=== PATIENT | male | born 1965 | race Caucasian/White ===

== ENCOUNTER 2023-03-19 16:26 | Outpatient (CLI) | payer OTHER, SELFPAY | END 2023-03-19 16:27 | disposition home or self-care (01) | LOC: NFLDREF 03-21 10:24 | PROVIDERS: PCP Family Medicine; Referring Provider Family Medicine; Visit Provider Family Medicine | DX: Z00.00 Encounter for general adult medical examination without abnormal findings (principal); Z12.5 Encounter for screening for malignant neoplasm of prostate | CPT/HCPCS: 84153 ==

== ENCOUNTER 2023-05-03 15:41 | Outpatient (CLI) | payer OTHER, SELFPAY ==
--- OUTSIDE RECORDS SUMMARY | 2023-05-11 09:26 | XMS_ITS | Continuity of Care Document ---
Author Name Unknown Organization [facility] jodi Address [address] [facility] [place] [address] Phone Care Team Providers Care Aquatics Specialist Name Role Phone Will Leo FOLEY Unavailable Unavailabl e Allergies, Adverse Reactions, Alerts Substance Reaction Status Criticality No Known Allergies Active No Inform ation Medications Medication Instructions Dosage Effective Dates (start - stop) Status Comments celecoxib 200 mg capsule take 1-2 capsule by oral route every day - Active lisinopril 10 mg-hydrochlorothia zide 12.5 mg tablet take 1 tablet by oral route every day 1.00 tablet - Active omeprazole 20 mg capsule,delayed release take 1 capsule by oral route every day 30 minutes to 1 hour before a meal 20 MG - Active Cymbalta 30 mg capsule,delayed release take 1 capsule by oral route every day - Active Adderall XR 30 mg capsule,extended release take 1 capsule by oral route every day in the morning upon awakening 30 MG - Active Adderall 10 mg tablet take 1 tablet by oral route every day before breakfast 10 MG - Active hydrocodone 5 mg-acetaminophen 325 mg tablet take 0.5-1 tablet by oral route every 6 hours as needed for pain - No Longer Active Procedures Procedure Date OFFICE/OUTPATIENT VISIT, EST Foll-up eval q3mo opiod tx OFFICE/OUTPATIENT VISIT, EST OFFICE/OUTPATIENT VISIT, NEW Advance Directives Directive Yes / No Effective Date File Name No Information Encounters Encounter Description Practice Location Reason(s) For Visit Diagnoses Date Provider Providers Copied on Encounter [facility], [address] [facility] [place], [id number] , [place] [phone] [facility] [place] No Information 3 Jovanni Bailey. [address] [place], [place], [id number], [place]. tel:[phone] OFFICE/OUTPA TIENT VISIT, [facility], [address] [place] [address], [id number] , [place] [phone] [facility] Widespread pain (chief complaint) Chronic pain syndromeOther psoriatic arthropathyLong term (current) use of opiate analgesicRadicul opathy, lumbar region Feb- 3 Caitlin Marcy. [address] [place] [address], [place], [id number], [place]. tel:[phone] Referring Provider: Leo Granados, [address] [place], [place] [address], [address] . tel:[phone] OFFICE/OUTPA TIENT VISIT, [facility], [address] [place] [address], [id number] , [place] [phone] [facility] Widespread pain (chief complaint) Chronic pain syndromeOther psoriatic arthropathyLong term (current) use of opiate analgesic Nov- 3 Caitlin Marcy. [address] [place] [address], [place], [id number], [place]. tel:[phone] Referring Provider: Leo Granados, [address] [place], [place] [address], [address] . tel:[phone] OFFICE/OUTPA TIENT VISIT, [facility], [address] [place] [address], [id number] , [place] [phone] [facility] Widespread pain (chief complaint) Chronic pain syndromeEncounte r for therapeutic drug level monitoringOther psoriatic arthropathyLong term (current) use of opiate analgesicCarpal tunnel syndrome, left upper limbCarpal tunnel syndrome, right upper limb Oct- 3 Caitlin Marcy. [address], [place], [place], [id number], [place]. tel:[phone] Referring Provider: Leo Granados, [address] [facility] [place], [address] . tel:[phone] Family History Family Member Type Diagnosis Age At Onset No Information Payers Payer name Insurance type Covered democrat ID Valerie cardoso(s) [facility] [id number] Social History Type Description Quantity Date Captured Comments Alcohol Use Details Unknown Caffeine Use Details Unknown Tobacco Use Status No Information Smoking Status No Information Sex Male Chief Complaint And Reason For Visit No Information Reason For Referral Reason For Referral No Information Plan Of Treatment Date Type Action Status Goal FUEL CELL BUILDER Scanned. Due on due Goal UDT. Due on due Goal AST (SGOT). Due on due Goal HOUSE FATHER Paperwork. Due on due Goal Order Annual PT. Due on due Goal ALT (SGPT). Due on due Goal OARS. Due on due Goal Update Social History. Due o n due Goal Height. Due on d ue Goal Unhealthy drug use screening . Due on due Goal Weight. Due on d ue Goal Hepatitis C screening. Due o n due Goal FIT. Due on due Goal PHQ-9. Due on du e Goal FIT-DNA. Due on due Goal Lipid panel. Due on due Goal Medication Reconciliation. D ue on due Goal Tobacco Use. Due on due Goal Review Allergy List. Due on due Goal Zoster vaccine (1st). Due on due Goal CT-Colonography. Due on due Goal Creatinine. Due on due Goal UDT. Due on due Goal Creatinine. Due on due Goal Review Allergy List. Due on due Goal ALT (SGPT). Due on due Goal HOUSE FATHER Paperwork. Due on due Goal Order Annual PT. Due on due Goal AST (SGOT). Due on due Goal FUEL CELL BUILDER Scanned. Due on due Goal OARS. Due on due Goal Medication Reconciliation. D ue on due Goal Unhealthy drug use screening . Due on due Goal Weight. Due on d ue Goal Height. Due on d ue Goal Zoster vaccine (1st). Due on due Goal FIT-DNA. Due on due Goal CT-Colonography. Due on due Goal Tobacco Use. Due on due Goal Hepatitis C screening. Due o n due Goal FIT. Due on due Goal PHQ-9. Due on du e Goal Lipid panel. Due on due Goal Update Social History. Due o n due Goal AST (SGOT). Due on due Goal FUEL CELL BUILDER Scanned. Due on due Goal Order Annual PT. Due on due Goal Creatinine. Due on due Goal HOUSE FATHER Paperwork. Due on due Goal OARS. Due on due Goal ALT (SGPT). Due on due Goal UDT. Due on due Goal Height. Due on d ue Goal Tobacco Use. Due on due Goal Weight. Due on d ue Goal Hepatitis C screening. Due o n due Goal Unhealthy drug use screening . Due on due Goal Lipid panel. Due on due Goal Update Social History. Due o n due Goal FIT. Due on due Goal FIT-DNA. Due on due Goal Review Allergy List. Due on due Goal PHQ-9. Due on du e Goal CT-Colonography. Due on due Goal Medication Reconciliation. D ue on due Goal Zoster vaccine (1st). Due on due Goal HOUSE FATHER Paperwork. Due on due Goal UDT. Due on due Goal Creatinine. Due on due Goal FUEL CELL BUILDER Scanned. Due on due Goal OARS. Due on due Goal AST (SGOT). Due on due Goal ALT (SGPT). Due on due Goal Order Annual PT. Due on due Goal Hepatitis C screening. Due o n due Goal FIT. Due on due Goal Weight. Due on d ue Goal Zoster vaccine (1st). Due on due Goal PHQ-9. Due on du e Goal CT-Colonography. Due on due Goal Review Allergy List. Due on due Goal Update Social History. Due o n due Goal Tobacco Use. Due on due Goal Medication Reconciliation. D ue on due Goal Unhealthy drug use screening . Due on due Goal Height. Due on d ue Goal FIT-DNA. Due on due Goal Lipid panel. Due on due History Of Present Illness Encounter Date Complaint History Of Prese nt Illness Widespread pain Severity level i s 4. Duration: chronic. The client describes it as achy. It occurs persistently. The problem is stable. Pertinent negatives include diarrhea, fatigue, fever and incontinence (urinary). Comments: Sanjeev presents for routine follow up for stable, but continued psoriatic arthritis pain. He reports worsening/new low back pain with RLE pain. He states he has a physical at the end of the month where he had planned on talking to them about his back pain. His pain starts at his right low back and then radiates down the back of RLE to the knee. Standing makes his pain worse. Laying down and sitting for too long also increases pain. Has had similar sciatic pain in the past. He is currently managed on Humira, Celebrex, and Cymbalta. He receives short Twain rxs to use when the pain is severe. Continues to use sparingly. Did receive oxycodone from an ED visit for kidney stones. Called in to report this. No other concerns today. Comments: Sanjeev is a 57 y/o male here for initial follow up regarding psoriatic arthritis pain. Pain began around 1996, with swelling in his fingers, toes, and joints. Pain averages 5/10 and is described as widespread aching, particularly in his joints.He continues to follow with rheumatology for medication management. He has tried other limited options for pain. He is currently managed on Humira, Celebrex, and Cymbalta. He has tried Flexeril and prednisone in the past. He also receives small prescriptions of Twain, which help when his pain is flared. Does not use pain medication often. He reports he would take 0.5 tab of hydrocodone in morning and another 0.5 tab later in the day. 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 Tries to stay active and enjoys spending time with his grandkids. Following with neurology for CTS workup. No other concerns today. Widespread pain Severity level i s 1. Duration: chronic. The client describes it as aching and tingling. It occurs intermittently. The problem is fluctuating. Symptom is aggravated by bending, running, standing, lifting and prolonged positioning. Relieving factors include Rx Meds and movement. Pertinent negatives include diarrhea, fatigue, fever and incontinence (urinary). Widespread pain Severity level i s 5. Duration: chronic. The client describes it as achy. It occurs persistently. Symptom is aggravated by bending, twisting and movement. Relieving factors include stretching and Rx Meds. Pertinent negatives include diarrhea, dyspnea, fever and incontinence (urinary). Comments: This i s my first evaluation of the patient. Records are not available for review. Sanjeev is a 56 y/o male here for initial consult regarding psoriatic arthritis pain, self referred. Pain began 26 years ago, with swelling in his fingers, toes, and joints. Pain averages 5/10 and is described as widespread aching, particularly in his joints.His pain is typically worse with weather changes, but overall tolerable. 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 He was encouraged to transfer care to a pain clinic for the management of his short Twain prescriptions. He continues to follow with rheumatology for medication management. He has tried other limited options for pain. Patient has not tried PT or steroid injections. He believes he had an injection in the buttock but is unsure about the details, possibly toradol or Cortisol? He is currently managed on Jodie, Celebrex, and Cymbalta. He has tried Flexeril and prednisone in the past. He also receives small prescriptions of Twain- has received 20 tabs in the last 12 months. Reports he does not use pain medication often, only when things are very flared. He reports he would take 0.5 tab of hydrocodone in morning and another 0.5 tab later in the day. This does help his pain. He continues to work daily- works at an elementary school. Tries to stay active and enjoys spending time with his grandkids. He notices that some activities are getting harder to accomplish. Also follows with mental health. Following with neurology for CTS workup. Has noticed more NT in his bilateral hands. Sanjeev is interested in pain management through [facility]. No other concerns today. Functional Status Date Functional Assessmen t No Information Instructions Date Instruction Additional Infor mation No Information Assessments Type Assessment Date No Information Patient Care Teams Name Effective Dates (start - stop) Status Members No Information
--- OUTSIDE RECORDS SUMMARY | 2023-05-11 09:27 | XMS_ITS | Continuity of Care Document ---
Author Name Unknown Organization [facility] Address [address] [place] [address] Phone Care Team Providers Care Line Crewman Name Role Phone Deysi COSTELLO, Zenon Unavailable Unavailable Allergies, Adverse Reactions, Alerts Substance Reaction Status Criticality No Known Allergies Active No Inform ation Medications Medication Instructions Dosage Effective Dates (start - stop) Status Comments omeprazole 20 mg capsule,delayed release TAKE 1 CAPSULE BY MOUTH EVERY DAY BEFORE A MEAL - Active Celebrex 200 mg capsule TAKE 1 CAPSULE (200MG) BY ORAL ROUTE DAILY TO TWICE DAILY - Active Humira(CF) Pen 40 mg/0.4 mL subcutaneous kit INJECT 1 PEN UNDER THE SKIN EVERY 14 DAYS IN THE ABDOMEN OR THIGHS (ROTATE SITES). - Active hydrocodone 5 mg-acetaminophen 325 mg tablet denied. - Active Dx: chronic pain fluocinonide 0.05 % topical ointment apply by topical route 2 times every day to the affected area(s) 0.00 - Active tamsulosin 0.4 mg capsule take 1 capsule by oral route every day 1/2 hour following the same meal each day 0.4 MG - Active Adderall XR 30 mg capsule,extended release take 1 capsule by oral route every day in the morning upon awakening 30 MG - Active duloxetine 60 mg capsule,delayed release take 1 capsule by oral route every day 60 MG - Active lisinopril 10 mg tablet take 1 tablet by oral route every day 10 MG - Active Celebrex 200 mg capsule TAKE 1 CAPSULE (200MG) BY ORAL ROUTE DAILY TO TWICE DAILY-please call to make an appt with new provider - No Longer Active Humira(CF) Pen 40 mg/0.4 mL subcutaneous kit INJECT 1 PEN UNDER THE SKIN EVERY 14 DAYS IN THE ABDOMEN OR THIGHS (ROTATE SITES). - No Longer Active OMEPRAZOLE DR 20 MG CAPSULE TAKE 1 CAPSULE BY MOUTH EVERY DAY BEFORE A MEAL - No Longer Active Procedures Procedure Date Office/Outpatient Visit, Est Routine Venipuncture Assay Of Serum Albumin Assay Of Creatinine Transferase (Ast) (Sgot) Alanine Amino (Alt) (Sgpt) Complete Cbc WAuto Diff Wbc Office/Outpatient Visit, Est Routine Venipuncture Assay Of Serum Albumin Assay Of Creatinine Transferase (Ast) (Sgot) Alanine Amino (Alt) (Sgpt) Complete Cbc WAuto Diff Wbc Office/Outpatient Visit, Est Routine Venipuncture Rbc Sed Rate, Nonautomated Assay Of Serum Albumin Assay Of Creatinine Transferase (Ast) (Sgot) Alanine Amino (Alt) (Sgpt) CReactive Protein Complete Cbc WAuto Diff Wbc Office/Outpatient Visit, Est Routine Venipuncture Assay Of Serum Albumin Assay Of Creatinine Transferase (Ast) (Sgot) Alanine Amino (Alt) (Sgpt) Complete Cbc WAuto Diff Wbc Office/Outpatient Visit, Est Routine Venipuncture Specimen Handling Rbc Sed Rate, Nonautomated Assay Of Serum Albumin Assay Of Creatinine Transferase (Ast) (Sgot) Alanine Amino (Alt) (Sgpt) CReactive Protein Tb Test, Cell Immun Measure Complete Cbc WAuto Diff Wbc Office/Outpatient Visit, Est Routine Venipuncture Assay Of Serum Albumin Assay Of Creatinine Transferase (Ast) (Sgot) Alanine Amino (Alt) (Sgpt) Complete Cbc WAuto Diff Wbc Office/Outpatient Visit, Est Routine Venipuncture Rbc Sed Rate, Nonautomated Assay Of Serum Albumin Assay Of Creatinine Transferase (Ast) (Sgot) Alanine Amino (Alt) (Sgpt) Assay Of Ck (Cpk) CReactive Protein Complete Cbc WAuto Diff Wbc Office/Outpatient Visit, Est Routine Venipuncture Specimen Handling Complete Cbc WAuto Diff Wbc Assay Of Serum Albumin Assay Of Creatinine Transferase (Ast) (Sgot) Alanine Amino (Alt) (Sgpt) Office/Outpatient Visit, Est Routine Venipuncture Complete Cbc WAuto Diff Wbc Assay Of Serum Albumin Assay Of Creatinine Transferase (Ast) (Sgot) Alanine Amino (Alt) (Sgpt) Office/Outpatient Visit, Est Routine Venipuncture Complete Cbc WAuto Diff Wbc CReactive Protein Assay Of Serum Albumin Assay Of Creatinine Transferase (Ast) (Sgot) Alanine Amino (Alt) (Sgpt) Office/Outpatient Visit, Est Routine Venipuncture Complete Cbc WAuto Diff Wbc Rbc Sed Rate, Nonautomated Assay Of Serum Albumin Assay Of Creatinine Transferase (Ast) (Sgot) Alanine Amino (Alt) (Sgpt) Assay Of Ck (Cpk) CReactive Protein Office/Outpatient Visit, Est Routine Venipuncture Specimen Handling Complete Cbc WAuto Diff Wbc Assay Of Ck (Cpk) Assay Of Serum Albumin Assay Of Creatinine Transferase (Ast) (Sgot) Alanine Amino (Alt) (Sgpt) Office/Outpatient Visit, Est Routine Venipuncture Complete Cbc WAuto Diff Wbc Assay Of Serum Albumin Assay Of Creatinine Transferase (Ast) (Sgot) Alanine Amino (Alt) (Sgpt) Office/Outpatient Visit, Est Routine Venipuncture Complete Cbc WAuto Diff Wbc Assay Of Serum Albumin Assay Of Creatinine Transferase (Ast) (Sgot) Alanine Amino (Alt) (Sgpt) Office/Outpatient Visit, Est Routine Venipuncture Specimen Handling Assay Of Serum Albumin Assay Of Creatinine Transferase (Ast) (Sgot) Alanine Amino (Alt) (Sgpt) Office/Outpatient Visit, Est Routine Venipuncture Specimen Handling Complete Cbc WAuto Diff Wbc Rbc Sed Rate, Nonautomated CReactive Protein Assay Of Serum Albumin Bilirubin, Total Assay Of Creatinine Lactate (Ld) (Ldh) Enzyme Assay Alkaline Phosphatase Assay Of Protein, Any Source Transferase (Ast) (Sgot) Alanine Amino (Alt) (Sgpt) Office/Outpatient Visit, Est Routine Venipuncture Complete Cbc WAuto Diff Wbc Assay Of Serum Albumin Assay Of Creatinine Transferase Ast Sgot Alanine Amino Alt Sgpt Advance Directives Directive Yes / No Effective Date File Name No Information Encounters Encounter Description Practice Location Reason(s) For Visit Diagnoses Date Provider Providers Copied on Encounter [facility], [address], [place], [address], [place] tel:[phone] [facility] , No Information 3 Deysi Yarbrough. [facility] [address], [place], [address], [place]. tel:[phone] Office/Outpa tient Visit, Est [facility], [address], [place], [address], [place] tel:[phone] [facility] , Psoriatic arthritis (chief complaint) Monitor Chronic High Risk Meds (chief complaint) Other psoriatic arthropathyO ther dedicated intermodal truck driver (current) drug therapyRash 3 Gabino Beltre. [address], [place], [address], [place]. tel:[phone] Referring Provider: Alexsander Hoffman, [address], [place], [address]. tel:[phone] [facility], [address], [place], [address], [place] tel:[phone] [facility] , No Information 3 Calista Sanders. [facility] [address], [place], [address], [place]. tel:[phone] [facility], [address], [place], [address], [place] tel:[phone] [facility] , No Information 3 Jacoby Johsnon. [facility] [address], [place], [address], [place]. tel:[phone] Referring Provider: Alex Lepe, [facility] [address], [place], [address]. tel:[phone] [facility], [address], [place], [address], [place] tel:[phone] [facility] No Information 3 Alejandro Amin. [address], [address], [place], [address], [place]. tel:[phone] [facility], [address], [place], [address], [place] tel:[phone] [facility] , No Information 3 Calista Sanders. [facility] [address], [place], [address], [place]. tel:[phone] [facility], [address], [place], [address], [place] tel:[phone] [facility] , No Information 3 Calista Tommy. [facility] [address], [place], [address], [place]. tel:[phone] Office/Outpa tient Visit, Est [facility], [address], [place], [address], [place] tel:[phone] [facility] , Psoriatic arthritis (chief complaint) Monitor Chronic High Risk Meds (chief complaint) Other psoriatic arthropathyO ther dedicated intermodal truck driver (current) drug therapy 2 Calista Tommy. [facility] [address], [place], [address], [place]. tel:[phone] Referring Provider: Tommy Merchant, [facility] [address], [place], [address]. tel:[phone] Office/Outpa tient Visit, Est [facility], [address], [place], [address], [place] tel:[phone] [facility] , Psoriatic arthritis (chief complaint) Monitor Chronic High Risk Meds (chief complaint) Other psoriatic arthropathyO ther dedicated intermodal truck driver (current) drug therapyM[facility]ed with [facility] 2 Calista Sanders. [facility] [address], [place], [address], [place]. tel:[phone] Referring Provider: Tommy Merchant, [facility] [address], [place], [address]. tel:[phone] Office/Outpa tient Visit, Est [facility], [address], [place], [address], [place] tel:[phone] [facility] , Psoriatic arthritis (chief complaint) Monitor Chronic High Risk Meds (chief complaint) Other psoriatic arthropathyO ther dedicated intermodal truck driver (current) drug therapyMerged with [facility] 1 Calista Sanders. [facility] [address], [place], [address], [place]. tel:[phone] Referring Provider: Tommy Merchant, [facility] [address], [place], [address]. tel:[phone] [facility], [address], [place], [address], [place] tel:[phone] [facility] , No Information 1 Calista Sanders. [facility] [address], [place], [address], [place]. tel:[phone] Office/Outpa tient Visit, Est [facility], [address], [place], [address], [place] tel:[phone] [facility] , Psoriatic arthritis (chief complaint) Monitor Chronic High Risk Meds (chief complaint) Other psoriatic arthropathyO ther dedicated intermodal truck driver (current) drug therapyPain in leg, unspecified Dec- 0 Calista Hernandez [facility] [address], [place], [address], [place]. tel:[phone] Referring Provider: Tommy Merchant, [facility] [address], [place], [address]. tel:[phone] Office/Outpa tient Visit, Est [facility], [address], [place], [address], [place] tel:[phone] [facility] , Psoriatic arthritis (chief complaint) Monitor Chronic High Risk Meds (chief complaint) Other psoriatic arthropathyO ther fci (current) drug therapyPain in leg, unspecified Nov-0 0 Calista Sanders. [facility] [address], [place], [address], [place]. tel:[phone] Referring Provider: Tommy Merchant, [facility] [address], [place], [address]. tel:[phone] Office/Outpa tient Visit, Est [facility], [address], [place], [address], [place] tel:[phone] [facility] , Psoriatic arthritis (chief complaint) Monitor Chronic High Risk Meds (chief complaint) Other psoriatic arthropathyO ther fci (current) drug therapyPain in leg, unspecified 0 9 Calista Sanders. [facility] [address], [place], [address], [place]. tel:[phone] Referring Provider: Tommy Merchant, [facility] [address], [place], [address]. tel:[phone] Office/Outpa tient Visit, Est [facility], [address], [place], [address], [place] tel:[phone] [facility] , Psoriatic arthritis (chief complaint) Monitor Chronic High Risk Meds (chief complaint) Other psoriatic arthropathyO ther dedicated intermodal truck driver (current) drug therapy 9 Calista Sanders. [facility] [address], [place], [address], [place]. tel:[phone] Referring Provider: Tommy Merchant, [facility] [address], [place], [address]. tel:[phone] Office/Outpa tient Visit, Est [facility], [address], [place], [address], [place] tel:[phone] [facility] , Psoriatic arthritis (chief complaint) Monitor Chronic High Risk Meds (chief complaint) Other psoriatic arthropathyO ther dedicated intermodal truck driver (current) drug therapy 8 Calista Sanders. [facility] [address], [place], [address], [place]. tel:[phone] Referring Provider: Tommy Merchant, [facility] [address], [place], [address]. tel:[phone] Office/Outpa tient Visit, Est [facility], [address], [place], [address], [place] tel:[phone] [facility] , Psoriatic arthritis (chief complaint) Monitor Chronic High Risk Meds (chief complaint) Other psoriatic arthropathyO ther fci (current) drug therapy Calista Sanders. [facility] [address], [place], [address], [place]. tel:[phone] Referring Provider: Tommy Merchant, [facility] [address], [place], [address]. tel:[phone] Office/Outpa tient Visit, Est [facility], [address], [place], [address], [place] tel:[phone] [facility] , Psoriatic arthritis (chief complaint) Monitor Chronic High Risk Meds (chief complaint) Other psoriatic arthropathyO ther dedicated intermodal truck driver (current) drug therapy Calista Sanders. [facility] [address], [place], [address], [place]. tel:[phone] Referring Provider: Tommy Merchant, [facility] [address], [place], [address]. tel:[phone] Office/Outpa tient Visit, Est [facility], [address], [place], [address], [place] tel:[phone] [facility] , Psoriatic arthritis (chief complaint) Monitor Chronic High Risk Meds (chief complaint) Other psoriatic arthropathyO ther dedicated intermodal truck driver (current) drug therapyCramp and spasm 6 Calista Sanders. [facility] [address], [place], [address], [place]. tel:[phone] Referring Provider: Tommy Merchant, [facility] [address], [place], [address]. tel:[phone] Office/Outpa tient Visit, Est [facility], [address], [place], [address], [place] tel:[phone] [facility] , Psoriatic arthritis (chief complaint) Monitor Chronic High Risk Meds (chief complaint) Other psoriatic arthropathyO ther dedicated intermodal truck driver (current) drug therapy 6 Calista Sanders. [facility] [address], [place], [address], [place]. tel:[phone] Referring Provider: Tommy Merchant, [facility] [address], [place], [address]. tel:[phone] Office/Outpa tient Visit, Est [facility], [address], [place], [address], [place] tel:[phone] [facility] , Psoriatic arthritis (chief complaint) Monitor Chronic High Risk Meds (chief complaint) Psoriatic arthropathyT herapeutic Drug Monitoring 5 Calista Sanders. [facility] [address], [place], [address], [place]. tel:[phone] Referring Provider: Tommy Merchant, [facility] [address], [place], [address]. tel:[phone] Office/Outpa tient Visit, Est [facility], [address], [place], [address], [place] tel:[phone] [facility] , Psoriatic arthritis (chief complaint) Monitor Chronic High Risk Meds (chief complaint) Psoriatic arthropathyT herapeutic Drug Monitoring 5 Calistamely Sanders. [facility] [address], [place], [address], [place]. tel:[phone] Referring Provider: Tommy Merchant, [facility] [address], [place], [address]. tel:[phone] Office/Outpa tient Visit, Est [facility], [address], [place], [address], [place] tel:[phone] [facility] , Psoriatic Arthritis (chief complaint) Psoriatic arthropathyT herapeutic Drug MonitoringAb normal Liver Enzymes 4 Calista Sanders. [facility] [address], [place], [address], [place]. tel:[phone] Referring Provider: Tommy Merchant, [facility] [address], [place], [address]. 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 [facility] [address], [place], [address], [place]. tel:[phone] Referring Provider: Niki Hunter, [facility], [place] [address], [place], [address]. tel:[phone] Family History Family Member Type Diagnosis Age At Onset No Information Payers Payer name Insurance type Covered alliance party ID Valerie cardoso(s) [facility] [id number] Social History Type Description Quantity Date Captured Comments Alcohol Use Details Unknown Caffeine Use Details Unknown Tobacco Use Status No Information Smoking Status No Information Sex Male Chief Complaint And Reason For Visit No Information Reason For Referral Reason For Referral No Information History Of Present Illness Encounter Date Complaint History Of Prese nt Illness Psoriatic arthritis Monitor Chronic High Risk Meds Psoriatic arthritis Monitor Chronic High Risk Meds Psoriatic arthritis Monitor Chronic High Risk Meds Psoriatic arthritis Monitor Chronic High Risk Meds Psoriatic arthritis Monitor Chronic High Risk Meds Psoriatic arthritis Monitor Chronic High Risk Meds Psoriatic arthritis Monitor Chronic High Risk Meds Psoriatic arthritis Monitor Chronic High Risk Meds Psoriatic arthritis Monitor Chronic High Risk Meds Psoriatic arthritis Monitor Chronic High Risk Meds Psoriatic arthritis Monitor Chronic High Risk Meds Psoriatic arthritis Monitor Chronic High Risk Meds Psoriatic arthritis Monitor Chronic High Risk Meds Psoriatic arthritis Monitor Chronic High Risk Meds Psoriatic arthritis Monitor Chronic High Risk Meds Functional Status Date Functional Assessmen t No Information Instructions Date Instruction Additional Infor mation The patient will hav e CBC, Cr, transaminases and albumin performed every 6-12m months. Related to Other dedicated intermodal truck driver (current) drug therapy Continue Humira 40 m g every 2 weeks and Celebrex 200 mg once daily as needed. He has been scheduling the Celebrex and I told him he could try taking it as needed.I gave him some exercises to do for the neck. If it is still bothering him we can refer to PT Related to Other psoriatic arthropathy Refer to dermatology for evaluation of facial rash and whether or not they think it is related to Humira Related to Rash Continue Humira 40 m g every 2 weeks and Celebrex 200 mg once-twice daily as needed.Core strengthening exercises were discussed and demonstrated for the patient today. Related to Other psoriatic arthropathy The patient will hav e CBC, Cr, transaminases and albumin performed every 6 months. Related to Other fci (current) drug therapy The patient will hav e CBC, Cr, transaminases and albumin performed every 6 months. Related to Other fci (current) drug therapy Option to utilize OT C Lomotil as needed.Option to seek GI evaluation regarding the bouts of diarrhea. Related to Diarrhea After discussion of the above issues, the patient and I are in agreement with pursuing switch from Cosentyx back to Humira 40 mg every 2 weeks. Continue Celebrex 200 milligrams twice daily as needed. Related to Other psoriatic arthropathy Option to utilize OT C Lomotil as needed.Option to seek GI evaluation regarding the bouts of diarrhea. Related to Diarrhea The patient will hav e CBC, Cr, transaminases and albumin performed every 6 months. Related to Other dedicated intermodal truck driver (current) drug therapy After discussion of the above issues, the patient and I are in agreement with continuing Cosentyx at 150 mg every month.Continue Celebrex 200 milligrams twice daily as needed. Related to Other psoriatic arthropathy After discussion of the above issues, the patient and I are in agreement with pursuing switch of his antirheumatic therapy from Humira to Taltz.Continue Celebrex 200 milligrams twice daily and as needed acetaminophen. Related to Other psoriatic arthropathy The patient will hav e CBC, Cr, transaminases and albumin performed every 3-6 months. Related to Other fci (current) drug therapy I continue to recomm end neurology evaluation. Related to Pain in leg, unspecified The patient will hav e CBC, Cr, transaminases and albumin performed every 6 months. Related to Other fci (current) drug therapy I recommend neurology evaluation . Related to Pain in leg, unspecified Continue Humira 40 m illigrams every 2 weeks.Continue Celebrex 200 milligrams twice daily and as needed acetaminophen. Related to Other psoriatic arthropathy Pursue MRI imaging o f the lumbar spine.Depending upon the results of the MRI, I will consider EMG/NCV and neurology evaluation. Related to Pain in leg, unspecified Continue Humira 40 m illigrams every 2 weeks.Continue Celebrex 200 milligrams twice daily and as needed acetaminophen. Related to Other psoriatic arthropathy The patient will hav e CBC, Cr, transaminases and albumin performed every 6 months. Related to Other fci (current) drug therapy Continue Humira 40 m illigrams every 2 weeks.Remain off of methotrexate.Continue Celebrex 200 milligrams twice daily and as needed acetaminophen.For the LBP, pursue trial of occasional tramadol in place of the hydrocodone. Related to Other psoriatic arthropathy The patient will hav e CBC, Cr, transaminases and albumin performed every 6 months. Related to Other fci (current) drug therapy Continue Humira 40 m illigrams every 2 weeks.Remain off of methotrexate.Continue Celebrex 200 milligrams twice daily and as needed acetaminophen. Related to Other psoriatic arthropathy The patient will hav e CBC, Cr, transaminases and albumin performed every 6 months. Related to Other fci (current) drug therapy Continue methotrexat e 17.5 milligrams weekly and celecoxib 200 milligrams twice daily.Add back Humira once the current URI has resolved.I will subsequently consider mild decrease of the methotrexate dose, in light of the patient's chronic transaminase elevations related to his fatty liver. Related to Other psoriatic arthropathy The patient will hav e CBC, Cr, transaminases and albumin performed every 2-3 months. Related to Other fci (current) drug therapy With the initiation of methotrexate, the patient will have CBC, Cr, transaminases and albumin performed in 1 month. Related to Other dedicated intermodal truck driver (current) drug therapy Add methotrexate at 10 milligrams 1st dose, then 15 milligrams a 2nd dose, then 17.5 milligrams weekly.Continue Humira and Celebrex unchanged.Should the patient be unable to tolerate the methotrexate, I will consider trial of leflunomide, which the patient has not utilized previously. Related to Other psoriatic arthropathy I will arrange for s everal lab studies to rule out common causes for this. Related to Cramp and spasm The patient will hav e CBC, Cr, transaminases and albumin performed every 6 months. Related to Other dedicated intermodal truck driver (current) drug therapy Continue current ant i-rheumatic medications unchanged. Related to Other psoriatic arthropathy The patient will hav e CBC, Cr, transaminases and albumin performed every 6 months. Related to Other dedicated intermodal truck driver (current) drug therapy Continue current ant i-rheumatic medications unchanged. Related to Other psoriatic arthropathy The patient will hav e CBC, Cr, transaminases and albumin performed every 4-6 months. Related to Therapeutic Drug Monitoring Continue current ant i-rheumatic medications unchanged. Related to Psoriatic arthropathy The patient will hav e CBC, Cr, transaminases and albumin performed every 6 months. Related to Therapeutic Drug Monitoring Continue current ant i-rheumatic medications unchanged except option to increase the celecoxib 200 milligrams twice daily regularly.Option to use acetaminophen more liberally. Related to Psoriatic arthropathy Assessments Type Assessment Date No Information Patient Care Teams Name Effective Dates (start - stop) Status Members No Information
== END 2023-05-03 15:42 | disposition home or self-care (01) ==
LOC: NFLDREF 05-11 09:23
PROVIDERS: PCP Family Medicine; Referring Provider Family Medicine; Visit Provider Family Medicine
DX: Z79.899 Other long term (current) drug therapy (principal)
CPT/HCPCS: 82306; 84443

== ENCOUNTER 2023-07-31 12:40 | Outpatient (CLI) | payer OTHER, SELFPAY ==
[2023-07-31 13:44] VITALS: BP 144/90; PULSE 91; RESP 18
--- NOTE | 2023-07-31 14:02 | P.STN_ITS ---
Stress Test Note Date Date of test: 07/31/23 Providers Primary care provider: Seth Perez Stress test physician: Chau Dee Stress Test Note Stress test ordered: Stress Echo Indication for test: Dyspnea Results discussion: Patient is a very nice 57-year-old gentleman who presents for the above test after discussion the risks benefits and side effects he would like to proceed, cardiac stress test medical history for report is reviewed pretest. EKG shows normal sinus rhythm ventricular rate of 71, no acute ST wave changes are noted s uggestive of ischemia. Standard Tramaine protocol is employed over a time course of 10 minutes, patient achieved a metabolic equivalent of 11.5, maximum heart rate was 169 which is 121% of the predicted. Test is deemed valid. Test is terminated because of fulfillment criteria, he had no anginal equivalent symptoms. Review of the tracing showed no evidence of any significant ST wave changes suggestive of ischemia, there is no dysrhythmias, conditioning was felt to be good Impression: Negative electrographic portion of stress echo Follow up suggested: Await echo imaging, this will be jointly read by Cardiology, clinical correlation with this will be needed. Patient left this testing facility in excellent condition
== END 2023-07-31 13:45 | disposition home or self-care (01) ==
LOC: STRESS 12:41
PROVIDERS: PCP Family Medicine; Visit Provider Family Medicine
DX: R06.09 Other forms of dyspnea (principal)
CPT/HCPCS: 93016; 93325; 93351

== ENCOUNTER 2024-03-14 12:47 | Outpatient (RCR) | payer OTHER, SELFPAY | END 2024-07-12 23:59 | disposition home or self-care (01) | PROVIDERS: PCP Family Medicine; Visit Provider Family Medicine | DX: M54.2 Cervicalgia (principal); R29.898 Other symptoms and signs involving the musculoskeletal system; Z51.89 Encounter for other specified aftercare | CPT/HCPCS: 97110; 97140; 97162 ==

== ENCOUNTER 2024-08-28 07:58 | Outpatient (CLI) | payer OTHER, SELFPAY | END 2024-08-28 07:59 | disposition home or self-care (01) | LOC: NFLDREF 09-07 07:56 | PROVIDERS: PCP Family Medicine; Referring Provider Family Medicine; Visit Provider Family Medicine | DX: E88.810 Metabolic syndrome (principal); Z13.1 Encounter for screening for diabetes mellitus; Z12.5 Encounter for screening for malignant neoplasm of prostate; Z13.6 Encounter for screening for cardiovascular disorders | CPT/HCPCS: 80053; 80061; G0103 ==

== ENCOUNTER 2024-09-03 14:34 | Outpatient (CLI) | payer OTHER, SELFPAY | END 2024-09-03 14:35 | disposition home or self-care (01) | LOC: RAD 14:35 | PROVIDERS: PCP Family Medicine; Visit Provider Family Medicine | DX: I77.810 Thoracic aortic ectasia (principal); I35.1 Nonrheumatic aortic (valve) insufficiency | CPT/HCPCS: 93306 ==

== ENCOUNTER 2024-09-29 06:22 | Outpatient (CLI) | payer OTHER, SELFPAY ==
--- NOTE | 2024-09-29 07:56 | P.ANES_ITS ---
Anesthesia Charges Start Date/Time Anesthesia Start Date: 09/29/24 Anesthesia Start Time: 07:26 Stop Date/Time Anesthesia Stop Date: 09/29/24 Anesthesia Stop Time: 07:54 Coding CPT Codes CPT Codes: CANDIE LWR INTST NDSC NOS - 91108 ([id number]) P2 - PATIENT W/MILD SYST DISEASE, QK - DEPUTY MANAGER 2-4 CNCRNT ANES PROC, QX - ELECTRONICS HARDWARE DESIGN ENGINEER SVC W/ MD MED DIRECTION
--- NOTE | 2024-09-29 07:56 | W.ANESCHARGE ---
Anesthesia Charges Start Date/Time Anesthesia Start Date: 09/29/24 Anesthesia Start Time: 07:26 Stop Date/Time Anesthesia Stop Date: 09/29/24 Anesthesia Stop Time: 07:54 Coding CPT Codes CPT Codes: CANDIE LWR INTST NDSC NOS - [id number] ([id number]) P2 - PATIENT W/MILD SYST DISEASE, QK - MEAT HANGER 2-4 CNCRNT ANES PROC, QX - METAL ROOFING MECHANIC SVC W/ MD MED DIRECTION
--- NOTE | 2024-09-29 09:24 | P.ANES_ITS ---
Anesthesia Charges Start Date/Time Anesthesia Start Date: 09/29/24 Anesthesia Start Time: 07:26 Stop Date/Time Anesthesia Stop Date: 09/29/24 Anesthesia Stop Time: 07:54 Coding CPT Codes CPT Codes: CANDIE LWR INTST NDSC NOS - [id number] ([id number]) P2 - PATIENT W/MILD SYST DISEASE, QK - OUTREACH AND EDUCATION SOCIAL WORKER 2-4 CNCRNT ANES PROC, QX - SWITCH CREW SUPERVISOR SVC W/ MD MED DIRECTION
--- NOTE | 2024-09-29 09:24 | W.ANESCHARGE ---
Anesthesia Charges Start Date/Time Anesthesia Start Date: 09/29/24 Anesthesia Start Time: 07:26 Stop Date/Time Anesthesia Stop Date: 09/29/24 Anesthesia Stop Time: 07:54 Coding CPT Codes CPT Codes: CADNIE LWR INTST NDSC NOS - [id number] ([id number]) P2 - PATIENT W/MILD SYST DISEASE, QK - OFFICIAL GREETER 2-4 CNCRNT ANES PROC, QX - HOUSE DECORATOR SVC W/ MD MED DIRECTION
== END 2024-09-29 06:23 | disposition home or self-care (01) ==
LOC: OP CLINIC 06:22
PROVIDERS: PCP Family Medicine; Visit Provider Surgery
DX: Z12.11 Encounter for screening for malignant neoplasm of colon (principal); D12.8 Benign neoplasm of rectum; K57.30 Diverticulosis of large intestine without perforation or abscess without bleeding; Z83.719 Family history of colon polyps, unspecified
CPT/HCPCS: 00811; 45385; 88305; J2704

== ENCOUNTER 2025-03-04 08:14 | Outpatient (CLI) | payer OTHER, SELFPAY | END 2025-03-04 08:15 | disposition home or self-care (01) | LOC: NFLDREF 03-05 18:17 | PROVIDERS: PCP Family Medicine; Referring Provider Family Medicine; Visit Provider Family Medicine | DX: E78.5 Hyperlipidemia, unspecified (principal); R53.83 Other fatigue | CPT/HCPCS: 80061; 80076; 84270; 84402; 84403 ==

== ENCOUNTER 2025-06-17 13:23 | Outpatient (CLI) | payer OTHER, SELFPAY ==
--- NOTE | 2025-06-17 13:45 | CRLHL7_ITS ---
For Patients: As a result of the 21st Century Cures Act, medical imaging exams and procedure reports are released immediately into your electronic medical record. You may view this report before your referring provider. If you have questions, please contact your health care provider. EXAM: MRI OF THE RIGHT SHOULDER, WITHOUT CONTRAST CLINICAL INDICATION: Shoulder pain. PRIOR SURGERY: None reported. COMPARISON PLAIN FILMS: 08 May 2025. COMPARISON CROSS-SECTIONAL IMAGING STUDIES: None available at time of interpretation. TECHNICAL: Axial, sagittal oblique and coronal oblique T1, PD, PD FS and T2-weighted images. Some motion artifact on all sequences. FINDINGS: GLENOHUMERAL JOINT: Effusion/Cyst: Upper normal physiologic fluid. No synovitis. No paralabral or periarticular cyst or ganglion. Humeral Head Articular Cartilage: No osteochondral lesion or abnormality. Glenoid Articular Cartilage: No osteochondral lesion or abnormality. Loose Bodies: No appreciable loose bodies. Capsule: No convincing evidence of adhesive capsulitis or capsular injury. OSSEOUS STRUCTURES: Subcortical fibrocystic foci posterior greater tuberosity/barrier humeral head. CORACOACROMIAL ARCH: Acromial Morphology: Type 2 acromial morphology. No abnormal lateral or anterior downward sloping of the acromion. No os acromiale. No significant subacromial spur. Lateral acromial thickness is 8 mm. Acromiohumeral Interval: The acromiohumeral interval is adequately patent. At its narrowest, the interval measures 8 mm. No abnormal thickening of the coracoacromial ligament. Coracohumeral Interval: The coracohumeral interval is normal. At its narrowest, the coracohumeral interval measures greater than 10 mm. Coracoid index is less than 10 mm. ACROMIOCLAVICULAR JOINT REGION: AC Joint: Small effusion. No joint space widening. Patchy subchondral cysts and surrounding edema and scant sclerosis clavicular head. No significant inferior osteophyte. Ligaments: The coracoclavicular ligaments are intact. BURSAE: Subacromial-Subdeltoid: No abnormal bursal edema, thickening or bursal fluid. Subcoracoid: No abnormal bursal edema, thickening or bursal fluid. ROTATOR CUFF TENDONS AND MUSCLES AND DELTOID: Supraspinatus: Patchy intermediate signal tendinosis distal tendon into the footplate. Small interstitial tear in the mid to posterior foot plate may be present involving less than 50 percent of expected thickness. No atrophy or edema in the muscle. Infraspinatus: Minor intermediate signal tendinosis distal tendon without tearing. No atrophy or edema in the muscle. Teres Minor: No tendinosis, tendon tearing, muscle atrophy or muscle edema. Subscapularis: Mild strandy and patchy intermediate signal tendinosis superior margin and deep articular margin distal tendon without tearing. No atrophy or edema in the muscle. Deltoid: No muscle atrophy or edema. BICEPS TENDON, LONG HEAD: No definitive intact biceps tendon. Assessment limited by motion and lack of fluid in the joint. Thin line of low signal intact through the bicipital groove with a small amount of fluid probably supraspinatus aponeurosis. Full-thickness proximal tear of the biceps suspected. Truncated somewhat indistinct biceps anchor with intermediate signal at the margins. Small amount of marrow edema under the anchor in the superior glenoid. Biceps hernán not well seen. GLENOID LABRUM: Small blunted superior labrum with surrounding fluid or edema like signal. Posterior, inferior and anterior labrum intact with expected morphology and signal. OTHER FINDINGS: There is no abnormality within the suprascapular or spinoglenoid notches nor within the quadrilateral space. No axillary adenopathy or mass. IMPRESSION: 1. Appearance favoring marginal degenerative tearing and mucoid change superior labrum, biceps anchor and avulsion biceps tendon with distal retraction from the [id number]. Motion artifact and paucity of fluid in the joint is limiting. If there is ongoing clinical concern consider MR arthrogram for further characterization. 2. 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 3. Mild tendinosis supraspinatus greater than infraspinatus. Probable small low-grade interstitial tear in the mid to posterior supraspinatus footplate. Minor marginal tendinosis subscapularis. Dictated by Jorge L Marshall MD @ 06/19/2025 8:45:40 AM (Electronically Signed)
== END 2025-06-17 13:24 | disposition home or self-care (01) ==
LOC: MRI 13:24
PROVIDERS: PCP Family Medicine; Visit Provider Family Medicine
DX: M25.511 Pain in right shoulder (principal); S43.431A Superior glenoid labrum lesion of right shoulder, initial encounter; M19.011 Primary osteoarthritis, right shoulder
CPT/HCPCS: 73221